=== PATIENT | female | born 1950 | race Caucasian/White ===

== ENCOUNTER 2016-12-15 10:34 | Day surgery (SDC) | payer MEDICARE, BC ==
[~2016-12-15] VITALS: Ht 154.9 cm; Wt 59.1 kg
[2016-12-15] VITALS (11 sets, daily range): BP systolic 125–158; BP diastolic 67–86; PULSE 68–82; RESP 12–16; Ht 154.9 cm; Wt 59.1 kg
[2016-12-15 11:27] LABS: ADD SCAN DIFF NO
[2016-12-15 11:32] LABS: BASOPHIL # 0.1 10^3/ul (0.0-0.1); BASOPHILS % 1.1 % (0.0-2.0); EOSINOPHILS # 0.1 10^3/ul (0.0-0.5); EOSINOPHILS % 1.7 % (0.0-7.0); HEMATOCRIT 38.4 % (37.0-47.0); HEMOGLOBIN 12.8 g/dl (12.0-16.0); LYMPHOCYTES # 1.5 10^3/ul (0.8-2.9); LYMPHOCYTES % 27.7 % (15.0-51.0); MEAN CORPUSCULAR HGB CONC 33.3 g/dl (32.0-37.0); MEAN PLATELET VOLUME 10.3 fl (7.4-10.4); MONOCYTE # 0.4 10^3/ul (0.3-0.9); NEUTROPHIL # 3.2 10^3/ul (1.6-7.5); NEUTROPHILS % 61.3 % (39.0-77.0); PLATELET COUNT 276 10^3/UL (140-415); RED BLOOD COUNT 4.13 10^6/ul (4.20-5.40); RED CELL DISTRIBUTION WIDTH 13.8 % (11.5-14.5); WHITE BLOOD COUNT 5.2 10^3/ul (4.8-10.8)
--- NOTE | 2016-12-15 11:43 | PREOPHP ---
DATE OF ADMISSION: 12/15/2016 DATE OF SURGERY: 12/15/2016. HISTORY OF PRESENT ILLNESS: The patient is a 66-year-old 5, para 4, AB1, menopausal seen in early November after 1 week of vaginal bleeding, had an endometrial biopsy in the office which reve aled complex hyperplasia with atypia. Patient is therefore being scheduled for a D and C to more co mpletely evaluate the endometrium before proceeding on to a hysterectomy. She will have a hysterect dana regardless but needs to make sure that there is no cancer present. 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 She had a repeat biopsy deshawn wed benign proliferative endometrium in 2011 and patient has had no vaginal bleeding since that time . Patient is not on any medication and not on any hormonal therapy. PAST MEDICAL HISTORY: None. PAST SURGICAL HISTORY: She had 2 previous sections, an appendectomy, she had a breast redu ction in 2000, tubal ligation. PAST OBSTETRICAL HISTORY: Two prior C-sections and 2 vaginal deliveries. ALLERGIES: KNOWN DRUG ALLERGIES. MEDICATIONS: None. SOCIAL HISTORY: No smoking, no drugs, no alcohol. FAMILY HISTORY: Only mother had high blood pressure and father had heart disease. PHYSICAL EXAMINATION: VITAL SIGNS: The patient is 5 foot 2, 129 pounds. HEART: Regular rate and rhythm. LUNGS: Clear to auscultation. ABDOMEN: Soft, nontender. PELVIC: No masses palpable. Ultrasound in early November, uterus was retroflexed with a normal size and contour, depth was 4.4 c m, lining 1.2 cm. No adnexal masses. The ovaries were not specifically seen and there is no cul-de -sac fluid. ASSESSMENT: Complex hyperplasia with atypia. PLAN: Dilatation and curettage. Dictated By: CANDY MEDINA/LIGIA Conf#: [id number] DID#: [id number]
[2016-12-15 11:44] LABS: POTASSIUM 3.9 mmol/L (3.5-5.1)
[2016-12-15 11:45] LABS: ALBUMIN/GLOBULIN RATIO 1.08; BILIRUBIN,INDIRECT 0.3 mg/dl (0-1.1); BILIRUBIN,TOTAL 0.3 mg/dl (0.2-1.3); TOTAL PROTEIN 7.7 g/dl (6.1-8.1)
[2016-12-15 12:05] LABS: CALCIUM 9.4 mg/dl (8.4-10.2); CREATININE 0.66 mg/dl (0.44-1.00)
[2016-12-15] MEDS ORDERED: MIDAZOLAM 1 MG/ML 2 ML INJ ONE (12:07)
[2016-12-15] MEDS ORDERED: FENTAnyl 50 MCG/ML VIAL ONE (12:07)
[2016-12-15] MEDS ORDERED: CEFAZOLIN 1 GM INJ ONE ×2 (12:17→12:49)
[2016-12-15 12:24] LABS: INR 0.97; PARTIAL THROMBOPLASTIN TIME 26.3 Sec (25.0-35.0); PROTIME 12.9 Sec (12.2-14.2)
[2016-12-15] MEDS ORDERED: ONDANSETRON 4 MG INJ ONE (12:49)
[2016-12-15] MEDS ORDERED: LIDOCAINE 2% (SDV) 5 ML INJ ONE (12:49)
[2016-12-15] MEDS ORDERED: PROPOFOL 20 ML ONE (12:49)
[2016-12-15] MEDS ORDERED: ONDANSETRON 4 MG INJ IV PRN (13:00)
[2016-12-15] MEDS ORDERED: morphine (1 MG/ML) 10ML SYRINGE IV PRN (13:00)
[2016-12-15] MEDS ORDERED: FENTAnyl 50 MCG/ML VIAL IV PRN (13:00)
[2016-12-15] MEDS ORDERED: MEPERIDINE 25 MG INJ IV PRN (13:00)
--- NOTE | 2016-12-15 13:22 | PD.PPDC ---
SENIOR ENERGY TRADER Discharge Instruction Condition Patient Condition: Good Diet Diet: Resume Regular Diet Activity/Restrictions Activity: Normal Activity May Shower Restrictions: No Sexual Activity Nothing in the Vagina No [place] No Tampons, douche Follow-up Follow-up with Physician: 5, Day/Days Return to clinic for FORMING FIXER Instructions: Fever greater than 101 Chills Worsening abdominal pain Excessive Vaginal Bleeding CANDY GALINDO MD Dec 15, 2016 13:22
--- NOTE | 2016-12-15 13:36 | OPR ---
DATE OF OPERATION: 12/15/2016 PREOPERATIVE DIAGNOSIS: Complex endometrial hyperplasia with atypia. POSTOPERATIVE DIAGNOSIS: Complex endometrial hyperplasia with atypia. OPERATION PERFORMED: Dilatation and sharp fractional curettage. SURGEON: David Delcid MD ANESTHESIOLOGIST: Dr. Sánchez. ANESTHESIA: General. ESTIMATED BLOOD LOSS: Less than 5 mL. COMPLICATIONS: None. PATHOLOGY: Endocervical curettings and endometrial curetting sent to pathology separately. DESCRIPTION OF PROCEDURE: The patient was brought to the operating room, placed on the operating room table and was placed under general anesthesia. Her legs were then brought up into hysterectomy stirrups, and she was prepped and draped in the usual sterile fashion. A weighted speculum was placed into the vaginal vault. The cervix was grasped with a tenaculum and ECC was done using an endocervical curet and scrapings were placed on a Telfa pad and dilated the cervix using Germaine dilators. Uterus sounded to 8 cm. A sharp uterine curet was then used to scrape all of the lateral side dhillon as well as the fundus very well and taking care to be thorough. The curettings were removed and placed on another Telfa pad. The 2 specimens were sent to pathology separately. Procedure was terminated. The vault was cleaned. The tenaculum was removed. Pressure was applied where that was. There was minimal bleeding afterwards. The speculum was removed. Perineum was cleaned. The patient's legs were brought back down to the full supine position and she was awakened from general anesthesia. The patient was transported to the recovery room in excellent condition. Dictated By: DAVID MEDINA/LIGIA Conf#: [id number] DID#: [id number] MTDD
[2016-12-16] MEDS ORDERED: LACTATED RINGER'S 1,000 ML IV ONE (08:00)
== END 2016-12-15 14:45 | disposition home or self-care (01) ==
LOC: SDS 10:34
PROVIDERS: ATTEND Obstetrics & Gynecology
DX: N85.02 Endometrial intraepithelial neoplasia [EIN] (principal); N95.0 Postmenopausal bleeding; Z98.51 Tubal ligation status
CPT/HCPCS: 58120; 80053; 85025; 85610; 85730; 88305; J0690; J2250; J2405; J3010

== ENCOUNTER 2017-04-08 10:39 | Observation (INO) | payer MEDICARE, BC ==
[2017-04-07 14:13] VITALS: BMI 24.2
[2017-04-08] VITALS (24 sets, daily range): BP systolic 114–144; BP diastolic 60–78; PULSE 62–80; RESP 16–20; Ht 157.5 cm; Wt 58.2 kg
[~2017-04-08] VITALS: Ht 157.5 cm; Wt 58.2 kg
--- NOTE | 2017-04-08 01:22 | PREOPHP ---
DATE OF ADMISSION: 04/08/2017 HISTORY OF PRESENT ILLNESS: The patient is a 66-year-old 5, para 4, AB 1, menopausal, seen earlier in the year with postmenopausal bleeding. She had an endometrial biopsy, which revealed com plex hyperplasia with atypia. She then had a D and C, which showed complex hyperplasia without atyp ia. In discussing the pros and cons with the patient about treating this with progesterone or optin g for hysterectomy, the patient opted for a hysterectomy, and is requesting laparoscopic hysterectom y. She had previously taken progesterone before for 6 months. She had complex hyperplasia without atypia in 2010, took hormones for 6 months. In 2011, it was repeated, it was benign. She had no va ginal bleeding since that time until 2017. The patient is not on any medication currently and not o n any hormonal therapy. PAST MEDICAL HISTORY: None. PAST SURGICAL HISTORY: Two previous sections, appendectomy, breast reduction, and tubal li gation. PAST OBSTETRICAL HISTORY: Two prior C-sections and 2 vaginal deliveries. ALLERGIES: NO KNOWN DRUG ALLERGIES. MEDICATIONS: None. SOCIAL HISTORY: No smoking, drugs, or alcohol. FAMILY HISTORY: Mother had high blood pressure and father with heart disease. REVIEW OF SYSTEMS: Negative for cardiovascular, pulmonary, urinary, gastrointestinal, and neurologi c system. PHYSICAL EXAMINATION: VITAL SIGNS: The patient is 5 feet 2 inches and 130 pounds. HEART: Regular rate and rhythm. LUNGS: Clear to auscultation. ABDOMEN: Soft, nontender. PELVIC: Uterus is retroflexed with a normal size and contour. No adnexal masses. EXTREMITIES: Nontender, no edema. ASSESSMENT: Complex hyperplasia without atypia. PLAN: Laparoscopic-assisted vaginal hysterectomy or laparoscopic total hysterectomy with bilateral salpingo-oophorectomy. Dictated By: CANDY MEDINA/LIGIA Conf#: [id number] DID#: [id number]
[~2017-04-08 10:39] MED LIST: EPHEDrine SULFATE 50 MG/5 ML SYG ONE; GLYCOPYRROLATE 0.4 MG INJ ONE; LACTATED RINGER'S 1,000 ML IV SCH; NEOSTIGMINE 3 MG/3 ML SYRINGE ONE
[2017-04-08] MEDS ORDERED: CEFAZOLIN 1 GM INJ ONE (10:55)
[2017-04-08] MEDS ORDERED: ROCURONIUM 50 MG INJ ONE (10:55)
[2017-04-08] MEDS ORDERED: MIDAZOLAM 1 MG/ML 2 ML INJ ONE (10:55)
[2017-04-08] MEDS ORDERED: metroNIDAZOLE 500 MG/NS (PMX) 100 ML IVPB ONE (10:55)
[2017-04-08] MEDS ORDERED: FENTAnyl 50 MCG/ML VIAL ONE (10:55)
[2017-04-08] MEDS ORDERED: PROPOFOL 100 ML ONE (10:55)
[2017-04-08] MEDS ORDERED: morphine SULFATE/PF (10 MG/10 ML) INJ ONE (10:56)
[2017-04-08] MEDS ORDERED: VASOPRESSIN 20 UNITS INJ ONE (11:58)
[2017-04-08] MEDS ORDERED: METHYLENE BLUE 1% 10 ML INJ ONE (11:58)
[2017-04-08] MEDS ORDERED: THROMBIN 5000 UNIT VIAL ONE (11:58)
[2017-04-08] MEDS ORDERED: morphine (1 MG/ML) 10ML SYRINGE IV PRN ×3 (15:00)
[2017-04-08] MEDS ORDERED: MEPERIDINE 25 MG INJ IV PRN (15:00)
[2017-04-08] MEDS ORDERED: DIPHENHYDRAMINE 50 MG INJ IV PRN ×2 (15:00)
[2017-04-08] MEDS ORDERED: HYDROmorphONE (0.2 MG/ML) 10ML SYG IV PRN ×3 (15:00)
[2017-04-08] MEDS ORDERED: ONDANSETRON 4 MG INJ IV PRN ×2 (15:00→20:00)
[2017-04-08] MEDS ORDERED: ALBUMIN HUMAN 5% 250 ML IV PRN (15:00)
[2017-04-08] MEDS ORDERED: LABETALOL HCL 20MG INJ IV PRN (15:00)
[2017-04-08] MEDS ORDERED: NALOXONE (0.4 MG/ML) INJ IV PRN (15:00)
[2017-04-08] MEDS ORDERED: EPHEDrine SULFATE 50 MG/5 ML SYG IV PRN (15:00)
[2017-04-08] MEDS ORDERED: hydrALAzine 20 MG INJ IV PRN (15:00)
[2017-04-08] MEDS ORDERED: METOCLOPRAMIDE 10 MG INJ IV PRN (15:00)
[2017-04-08] MEDS ORDERED: ROPIVACAINE 0.2% 20 ML VIAL ONE (15:39)
[2017-04-08] MEDS ORDERED: METOCLOPRAMIDE 10 MG INJ ONE (15:59)
[2017-04-08] MEDS ORDERED: ACETAMINOPHEN 1000MG/100ML IV 100 ML ONE (15:59)
[2017-04-08] MEDS ORDERED: ONDANSETRON 4 MG INJ ONE (15:59)
[2017-04-08] MEDS ORDERED: DEXAMETHASONE 4 MG/ML 1 ML INJ ONE (16:00)
[2017-04-08] MEDS ORDERED: KETOROLAC 30 MG INJ ONE (16:00)
[2017-04-08] MEDS ORDERED: HETASTARCH 6% NACL 500 ML ONE (16:00)
[2017-04-08] MEDS ORDERED: FAMOTIDINE 20 MG INJ ONE (16:00)
[2017-04-08] MEDS ORDERED: NEOSTIGMINE 3 MG/3 ML SYRINGE ONE (16:01)
[2017-04-08] MEDS ORDERED: GLYCOPYRROLATE 1 MG INJ ONE (16:01)
[2017-04-08] MEDS ORDERED: HEMOSTATIC MATRIX SYG ZFS ONE (16:05)
--- NOTE | 2017-04-08 17:07 | OPR ---
Date/Time of Note Date/Time of Note DATE: 04/08/17 TIME: 17:03 Operative Report Preoperative Diagnosis Complex endometrial hyperplasia without atypia Postoperative Diagnosis Same Operation/Procedure Performed Laparoscopic assisted vaginal hysterectomy, bilateral salpingoophorectomy, lysis of adhesions; Bilateral ureteral dissection by Dr Larose due to an enlarged lower uterine segment, and uterine fibroids. Surgeon: CANDY GALINDO MD Co-Surgeon: SHAR LAROSE MD Anesthesia: general, spinal Estimated Blood Loss: 10 - 50 ml's Specimens Uterus and both ovaries. Peritoneal fluid for cytology Complications: None CANDY GALINDO MD Apr 08, 2017 17:07
[2017-04-08] MEDS ORDERED: KETOROLAC 30 MG INJ IV PRN (20:00)
[2017-04-09] MEDS: NALBUPHINE HCL (10 MG/1 ML) INJ IV PRN ×2 (03:34→11:56)
[2017-04-09 05:09] LABS: ADD SCAN DIFF NO
[2017-04-09 05:21] LABS: ABNORMAL IP MESSAGE 1; BASOPHILS % 0.3 % (0.0-2.0); HEMATOCRIT 33.6 % (37.0-47.0); HEMOGLOBIN 11.3 g/dl (12.0-16.0); LYMPHOCYTES # 0.5 10^3/ul (0.8-2.9); MEAN CORPUSCULAR HEMOGLOBIN 30.5 pg (29.0-33.0); MEAN CORPUSCULAR HGB CONC 33.6 g/dl (32.0-37.0); MEAN CORPUSCULAR VOLUME 90.6 fl (82.0-101.0); MEAN PLATELET VOLUME 10.9 fl (7.4-10.4); MONOCYTE # 0.5 10^3/ul (0.3-0.9); MONOCYTES % 6.7 % (0.0-11.0); NEUTROPHIL # 6.6 10^3/ul (1.6-7.5); NEUTROPHILS % 85.6 % (39.0-77.0); PLATELET COUNT 223 10^3/UL (140-415); RED BLOOD COUNT 3.71 10^6/ul (4.20-5.40); RED CELL DISTRIBUTION WIDTH 12.4 % (11.5-14.5); WHITE BLOOD COUNT 7.7 10^3/ul (4.8-10.8)
--- NOTE | 2017-04-09 07:53 | PD.PPDC ---
TORPEDO WORKER Discharge Instruction Condition Patient Condition: Good Diet Diet: Resume Regular Diet Activity/Restrictions Activity: Normal Activity May Shower Restrictions: No Sexual Activity Nothing in the Vagina No [place] No Tampons, douche Wound/Drain Care Instructions Wound/Drain Care Instructions: Keep clean and dry Follow-up Follow-up with Physician: 2, Week/Weeks Return to clinic for NURSE ADVOCATE Instructions: Fever greater than 101 Chills Worsening abdominal pain Excessive Vaginal Bleeding Surgical Instructions: Incisional Drainage Incisional Redness CANDY GALINDO MD Apr 09, 2017 07:53
--- NOTE | 2017-04-09 07:58 | DS ---
Date/Time of Note Date/Time of Note DATE: 04/09/17 TIME: 07:54 Discharge Summary Admission/Discharge Info Admit Date/Time Apr 08, 2017 at 16:44 Discharge Date/Time April 09, 2017 Discharge Diagnosis S/P laparoscopic assisted vaginal hysterectomy with BSO. Patient Condition: Good Procedures Laparoscopic assisted vaginal hysterectomy with BSO. Hospital Course Pt feels well postoperatively with no pain. Pt feels a little dizzy this AM but has yet to eat and has not yet gotten up. Will d/c the blackman catheter and get pt up to walk and should be able to be d/c'ed home today. Home Meds No Active Prescriptions or Reported Meds Follow-up Plan To office in 2 weeks for an incision check. Primary Care Provider Not On Staff Doctor Time spent on discharge: < 30 minutes Pending Labs Laboratory Tests Test 04/09/17 04:24 White Blood Count 7.710^3/ul (4.8-10.8) Red Blood Count 3.7110^6/ul (4.20-5.40) Hemoglobin 11.3g/dl (12.0-16.0) Hematocrit 33.6% (37.0-47.0) Mean Corpuscular Volume 90.6fl (82.0-101.0) Mean Corpuscular Hemoglobin 30.5pg (29.0-33.0) Mean Corpuscular Hemoglobin Concent 33.6g/dl (32.0-37.0) Red Cell Distribution Width 12.4% (11.5-14.5) Platelet Count 48429^3/UL (140-415) Mean Platelet Volume 10.9fl (7.4-10.4) Neutrophils % 85.6% (39.0-77.0) Lymphocytes % 7.0% (15.0-51.0) Monocytes % 6.7% (0.0-11.0) Eosinophils % 0.0% (0.0-7.0) Basophils % 0.3% (0.0-2.0) Nucleated Red Blood Cells % 0.0/100WBC (0.0-0.0) Neutrophils # 6.610^3/ul (1.6-7.5) Lymphocytes # 0.510^3/ul (0.8-2.9) Monocytes # 0.510^3/ul (0.3-0.9) Eosinophils # 0.010^3/ul (0.0-0.5) Basophils # 0.010^3/ul (0.0-0.1) Nucleated Red Blood Cells # 0.010^3/ul (0.0-0.0) CANDY GALINDO MD Apr 09, 2017 07:58
[2017-04-09] MEDS ORDERED: LACTATED RINGER'S 1,000 ML IV ONE (08:00)
--- NOTE | 2017-04-09 08:14 | OPPN ---
Date/Time of Note Date/Time of Note DATE: 04/09/17 TIME: 08:14 Post-Anesthesia Notes Post-Anesthesia Note Last documented vital signs Vital Signs Date Time Temp Pulse Resp B/P Pulse Ox O2 Delivery O2 Flow Rate FiO2 04/08/17 22:00 97.5 66 20 144/64 100 04/08/17 21:00 Nasal Cannula 2.0 Activity: WNL Respiratory function: WNL Cardiovascular function: WNL Mental status: Baseline Pain reasonably controlled: Yes Hydration appropriate: Yes Nausea/Vomiting absent: Yes CYNTHIA HERNANDEZ MD Apr 09, 2017 08:14
[2017-04-09 08:17] VITALS: BP 109/55; RESP 15
[2017-04-09 13:47] VITALS: BP 130/61; PULSE 81
[2017-04-09] MEDS ORDERED: CITRIC ACID/SODIUM CITRATE 15 ML CUP PO ONE (15:30)
[2017-04-09 19:42] VITALS: BP 134/64; RESP 20
[2017-04-09] MEDS ORDERED: IBUPROFEN 600 MG TAB PO PRN (21:00)
--- NOTE | 2017-04-09 21:52 | QN ---
Documentation Comment Progress Note Ms Bustillos had been doing fine and asked for some pain medication this afternoon while she was waiting for her to come and pick her up and she had a bad reaction to Nubain. She had red palpitations, chest pain and she felt terrible. An EKG was normal. Gave her a fluid bolus to help flush it out of her suystem and the pt increased her fluid intake as well. She felt much better by the late afternoon but then was nervous about going home so the d/c is being held until tomorrow. I saw her around 1999 and her color was good and she was feeling much better. Reviewed her d/c instructions again. CANDY GALINDO MD Apr 09, 2017 21:52
[2017-04-10 08:07] VITALS: BP 115/61; RESP 14
--- NOTE | 2017-04-10 14:19 | OPR ---
DATE OF OPERATION: 04/08/2017 PREOPERATIVE DIAGNOSIS: Complex endometrial hyperplasia with atypia. POSTOPERATIVE DIAGNOSIS: SAME PROCEDURE: Laparoscopic assisted vaginal hysterectomy with bilateral salpingoophorectomy. Surgeon: Farhana Swimmer: Eamon Knuston performed a bilateral ureteral dissection, per my request due to adhesions and fibroids, which will be dictated separately. EBL: 50cc. Pathology:Uterus and tubes and ovaries sent to pathology. Complications: none. DETAILS OF PROCEDURE: After being prepped and draped in the usual manner, EEA sizer and balloon was placed against the cervix. A 5 mm trocar was then placed just above the umbilicus without issue.The abdomen was insufflated, and two 5 mm trocars were placed laterally, and the 12 mm trocar was placed suprapubically. The uterus was slightly enlarged with obvious fibroids noted externally. There was some scar tissue between the left bowel and the lateral sidewall. Round ligaments were cauterized and transected with the Thunderbeat, and the retroperitoneal space was opened parallel to the IP ligament and laterally. The ureters were identified. I asked Dr. Knutson to do the ureteral dissection due to the uterine fibroids and adhesions. That will be dictated separately. Ureters were identified. The uterine artery was then identified and clipped lateral to the ureter. The IP ligament was cauterized and transected with the Thunderbeat. The bladder flap was developed with the Thunderbeat and the Omni. This was repeated on the opposite side as well, again. Sequentially grasped, cauterized and transected the right uterine artery, cardinal ligament and uterosacral ligaments. Anterior and posterior colpotomies were accomplished with the Thunderbeat. When the uterus and cervix were completely , all were removed through the vagina easily. The vagina was then closed with continuous 0-Vicryl V-Loc suture. Of note, the ovaries and tubes had appeared normal. We exposed minimal bleeding. A little bit of cautery was applied with bipolar Omni. The pelvis was irrigated. When hemostasis was deemed superb, the gas was removed from the belly and all the trocars were removed. The 12 mm trocar site was closed with an Endo suture with 2 stitches with excellent closure and hemostasis noted. At the other 3 sites, the fascia did not need to be closed as the puncture sites were small. Skin was closed with 3-0 Monocryl in a subcuticular stitch for all locations. The patient was then awakened from general anesthesia having tolerated the procedure well. Dictated By: CANDY MEDINA/LIGIA Conf#: [id number] DID#: [id number] MTDD
--- NOTE | 2017-04-13 20:53 | OPR ---
Date/Time of Note Date/Time of Note DATE: 04/13/17 TIME: 20:52 Operative Report Free Text/Dictation OPERATIVE REPORT [facility] Name: Gardenia Bustillos Medical Date: 04/08/17 Preoperative Diagnosis: Persistent postmenopausal bleeding with endometrial hyperplasia Postoperative Diagnosis: 1- Same with pathology pending 2- Pelvic adhesions 3- Retroperitoneal ureteral distortion Procedures: 1-Bilateral ureteral dissection with repositioning 2- Retroperitoneal bilateral uterine artery ligation 3- Total laparoscopic hysterectomy with bilateral salpingoophorectomy ( dictated as a separate procedure by Dr. David Galindo] Surgeon: Dr. Knutson Business Mail Entry Clerk: Dr. David Galindo Anesthesia: General with regional Indications for Procedure: The patient was a 66- year old female who has had postmenopausal bleeding with endometrial thickening and endometrial hyperplasia for whom an office endometrial sampling procedure was obtained. Therefore due to persistent bleeding and the aforementioned some risk of endometrial cancer a TLH/BSO was undertaken with the patient being informed of risks and benefits and although Dr. David Galindo was the primary surgeon, I was involved as a product development consultant as needed. Name: Gardenia Bustillos Medical Findings and Summary After exploration we noted some adhesions with some uterine enlargement and the adnexia adherent to the sidewalls distorting the retroperitoneal anatomy and therefore my opinion was requested and I suggested ureteral identification retroperitoneally was appropriate to minimize risk of complication. It was requested that a bilateral ureteral dissection and repositioning be performed. In the process anatomic issues of an enlarged cervix also mandated retroperitoneal uterine artery ligation adjacent to hypogastric artery. The TLH /BSO was then completed uneventfully. Procedure: After being prepped and draped in the usual manner an examination under anesthesia was completed and the EEA sizer and pneumo-occluder was inserted vaginally. We then placed a 5-millimeter trocar periumbilically without incident. Subsequently, we insufflated to 15-mm Hg and placed two 5-millimeter trocars laterally to the rectus muscles at the umbilical level and a 12- millimeter trocar suprapubically. At this time moderate pelvic adhesions were lysed with sharp dissection unless not adjacent to a vital structure, in which case a Gyrus bipolar cutting forceps or Omni were used to assure hemostasis. At this time, the pelvis was inspected and we observed an enlarged globular uterus and adnexia adherent to the sidewalls due to perhaps prior inflammation with anatomical retroperitoneal distortion due to the uterine enlargement and adnexia adherent to the sidewalls, leaving ureteral location in question. My consultation was requested concerning the efficacy of a ureteral dissection with repositioning bilaterally by Dr. De La Garza, so that the intended procedure could be completed without complication. I concurred that a ureteral dissection with repositioning was indicated bilaterally as a separate procedure. Hence the ureteral dissection with repositioning was undertaken. The right round ligament was transected with a Thunderbeat and the retroperitoneum opened parallel to the infundibulo-pelvic Name: [facility] (IP) ligament with the Omni and Gyrus bipolar cutting forceps used sharply and for hemostasis. The ureter was identified, and noted to be distorted anatomically. The ureter was dissected away from the peritoneum and enlarge uterus with adherent adnexia and repositioned with great care using the endo- dissector and Gyrus bipolar Omni bluntly. This process was carried out throughout the ureteral length in the pelvis and it peristalsed normally once repositioned. Because of some oozing and because the anatomy of the uterus resulted in displacement of the vessels laterally it mandated that we isolate the uterine artery and vein adjacent to the ureter that was lateralized to the level of the hypogastric artery using the endo-dissector and Omni for hemostasis with the previously dissected ureter visualized. Therefore in this case the uterine artery was hemoclipped with the ureter visualized immediately distal to the branching of the hypogastric and at the bifurcation of the hypogastric, proximal to the branching of the uterine and obliterated umbilical ; salvaging both observed superior and inferior vesicle while controlling the entire uterine with associated collateral branches. At this time a space was created in the broad ligament while visualizing the dissected ureter and the right IP-ligament was cauterized and transected with the Thunderbeat. Subsequently, the left round ligament was transected with the Thunderbeat as previously done on the contralateral side and the retroperitoneum opened parallel to the infundibulo-pelvic (IP) ligament with the Thunderbeat and Omni. The ureter was identified, and noted to also be distorted similarly. Hence the ureteral dissection with repositioning was undertaken. The ureter was dissected away from the peritoneum with adjacent enlarged uterus and repositioned with care using the endo-dissector and Gyrus bipolar Omni bluntly. This process was carried out throughout the ureteral length in the pelvis and it peristalsed normally once repositioned. Again, because of hypervascularity and because the anatomy of the enlarged uterus with adjacent adnexia resulted in displacement of the vessels laterally it mandated that we isolate the uterine artery and vein adjacent to the ureter that was lateralized to Name: [facility] Bustillos [facility] the level of the hypogastric artery using the endo-dissector and Omni for hemostasis with the previously dissected ureter visualized. Therefore in this case the uterine artery was hemoclipped while visualizing the ureter immediately distal to the branching of the hypogastric and at the bifurcation of the hypogastric, proximal to the branching of the uterine and obliterated umbilical; salvaging both observed superior and inferior vesicle while controlling the entire uterine with associated collateral branches. At this time a space was created in the broad ligament while visualizing the dissected ureter and the left IP-ligament was cauterized and transected with the Thunderbeat. The TLH/BSO as planned was then completed by Dr. David Galindo. After irrigating and assuring hemostasis the 12 millimeter trocar was removed and the fascia was closed with 0-vicryl using an endo-close devise. The gas was removed and the skin of all sites then closed with subcuticular 5-0 Monocryl suture. The EBL was 100cc and the patient tolerated the procedure well and left the OR in good condition. Andi Knutson M.D. Surgeon: DAVID GALINDO MD Business Mail Entry Clerk: ANDI KNUTSON MD Anesthesia: general, spinal Estimated Blood Loss: 10 - 50 ml's Complications: None ANDI KNUTSON MD Apr 13, 2017 20:53
== END 2017-04-10 10:10 | disposition home or self-care (01) ==
LOC: SDS 10:39 → MS1 16:44
PROVIDERS: ADMIT Obstetrics & Gynecology; ATTEND Obstetrics & Gynecology
DX: N85.01 Benign endometrial hyperplasia (principal); N80.0 Endometriosis of uterus; D25.9 Leiomyoma of uterus, unspecified; N72 Inflammatory disease of cervix uteri; N83.312 Acquired atrophy of left ovary; N83.311 Acquired atrophy of right ovary; N87.9 Dysplasia of cervix uteri, unspecified; Z98.51 Tubal ligation status
CPT/HCPCS: 58552; 85025; 86850; 86900; 86901; 86920; 87086; 88104; 88305; 93005; 96361; 96372; 96374; 96375; 96376; G0378; J0131; J0690; J1100; J1200; J1644; J1885; J2250; J2274; J2300; J2405; J2710; J2765; J2795; J3010; J7120